=== PATIENT | male | born 1975 | race Caucasian/White ===

== ENCOUNTER → 2022-02-13 09:39 | Outpatient (BNVA) | payer OTHER, SELFPAY | PROVIDERS: Visit Provider Internal Medicine | DX: Z77.21 Contact with and (suspected) exposure to potentially hazardous body fluids (principal); Z23 Encounter for immunization | CPT/HCPCS: 36415; 84450; 84460; 85025; 86704; 86706; 86803; 87340; 87389; 90715; 99203 ==

== ENCOUNTER → 2022-02-15 14:16 | Outpatient (BNVA) | payer OTHER, SELFPAY | PROVIDERS: Visit Provider Internal Medicine | DX: Z77.21 Contact with and (suspected) exposure to potentially hazardous body fluids (principal) | CPT/HCPCS: 99213 ==

== ENCOUNTER → 2022-02-19 16:12 | Outpatient (BNVA) | payer OTHER, SELFPAY | PROVIDERS: Visit Provider Internal Medicine | DX: Z77.21 Contact with and (suspected) exposure to potentially hazardous body fluids (principal) | CPT/HCPCS: 99213 ==

== ENCOUNTER → 2022-02-27 15:17 | Outpatient (BNVA) | payer OTHER, SELFPAY | PROVIDERS: Visit Provider Internal Medicine | DX: Z77.21 Contact with and (suspected) exposure to potentially hazardous body fluids (principal) | CPT/HCPCS: 36415; 82150; 82565; 84450; 84460; 85025; 99213 ==

== ENCOUNTER → 2022-05-17 13:39 | Outpatient (BNVA) | payer OTHER, SELFPAY | DX: Z77.21 Contact with and (suspected) exposure to potentially hazardous body fluids (principal) | CPT/HCPCS: 36415; 82150; 82565; 84450; 84460; 85025; 86803; 87389; 99211 ==

== ENCOUNTER → 2022-08-13 15:34 | Outpatient (BNVA) | payer OTHER, SELFPAY | DX: Z77.21 Contact with and (suspected) exposure to potentially hazardous body fluids (principal) | CPT/HCPCS: 36415; 84450; 84460; 86803; 87389 ==

== ENCOUNTER 2023-04-24 20:30 | Emergency (ER) | payer BC, SELFPAY ==
[2023-04-24 20:49] VITALS: BP 126/76; PULSE 83; RESP 18; TEMP 37.1; O2SAT 96; BMI 32.2
--- NOTE | 2023-04-24 20:49 | ED.SKABFB ---
HPI - Skin/Abscess/Foreign Bdy General Chief complaint: Skin/Abscess/Foreign Body Stated complaint: ?cyst on chest Time Seen by Provider: 04/24/23 20:53 Source: patient, RN notes reviewed and old records reviewed Mode of arrival: ambulatory History of Present Illness HPI narrative: 47-year-old male with no significant past medical history presenting to the ED complaining of known cyst to anterior chest wall x years which he noted discomfort and drainage from x today. Denies poking area with anything, fever/chills MD complaint: abscess/boil Related Data Previous Rx's Medication Instructions Recorded cephalexin 500 mg capsule 500 mg PO QID 7 days #28 caps 04/24/23 Allergies Allergy/AdvReac Type Severity Reaction Status Date / Time No Known Allergies Allergy Verified 04/24/23 20:48 [No Known Allergies*] Review of Systems Review of Systems: Constitutional: No Fever, No Chills ENT/Mouth: No Ear Pain, No Nasal Congestion, No sore throat, No Rhinorrhea, No Swallowing Difficulty Cardiovascular: No Chest Pain, No SOB Respiratory: No Cough, Gastrointestinal: No Nausea, No Vomiting, No Diarrhea, No Constipation, No Abdominal pain Musculoskeletal: No joint pain, No Myalgias, No Joint Swelling Skin: +Skin Lesions, No rash Neuro: No Weakness Yes all other systems are reviewed and are negative Constitutional: Constitutional: Reports as per [facility] Past Medical History Attestation statement: The following information was validated with the patient. Source: old records reviewed Physical Exam Vital Signs: Vital Signs: Last Vital Signs Temp 98.7 F 04/24/23 20:49 Pulse 83 04/24/23 20:49 Resp 18 04/24/23 20:49 BP 126/76 04/24/23 20:49 Pulse Ox 96 04/24/23 20:49 O2 Del Method Room Air 04/24/23 20:49 BMI result Body Mass Index 32.2 Const: General: cooperative, healthy appearing and no acute distress Orientation/consciousness: patient oriented x3 Limitations: no limitations HEENT: Head: Yes normal to inspection and Yes atraumatic Ears: hearing grossly normal bilaterally General nose exam: Normal external nose present Face and sinus: Yes normal facial exam Eyes: General: appearance normal, both eyes and all related structures EOM: EOMs intact bilaterally Neck: Neck: Yes normal visual inspection and Yes no meningeal signs Resp: Effort & Inspection: normal respiratory effort and no respiratory distress Cardio: Rate: regular rate Skin: Other: + cyst noted to anterior chest wall/sternum with small amount of bloody drainage expressed. Mildly tender. Some cyst pocket expressed. No pus drainage or fluctuance/induration. no streaking Rashes: no rashes Wounds: no wounds Neuro: General: patient oriented x3, tone normal and no meningeal signs Cranial nerves: Yes CN's II-XII intact bilaterally Gait exam (Neuro): Normal gait present Extrem: General: Yes normal to inspection Medical Decision Making Medical Decision Making MDM Narrative: 47-year-old male with no significant past medical history presenting to the ED complaining of known cyst to anterior chest wall x years which he noted discomfort and drainage from x today. On exam vital signs stable, NAD, nontoxic appearing, afebrile, physical above. Concern for infected cyst vs open abscess. Low suspicion for cellulitis or deeper tissue infection Plan: PO abx, Derm f/u Dressing applied Please refer to course for remaining clinical decision making, interpretation of labs/imaging results, and discussions with consultants and/or family members. Differential Diagnosis Differential Diagnoses: The differential diagnosis associated with the presentation includes As above External Record Review External record reviewed: Inpatient record, Office record, Outpatient record, Prior outpatient labs, Prior outpatient radiology, Primary care record and Outside ED record Tests considered The following testing was considered but not selected: As above Prescription Management I considered prescription management with: Pain Medication and Antibiotic Discharge Plan Discharge Clinical Impression: Cyst of skin Patient Disposition: Home, Self-Care Instructions: Cyst (ED) Additional Instructions: apply warm compresses at home keflex is an antibiotic take as prescribed Take Tylenol and Motrin for pain If area worsens, becomes more red, has pus drainage or you have fever return to the ED Please follow-up with dermatology and your PCP Prescriptions: New cephalexin 500 mg capsule 500 mg PO QID 7 Days Qty: 28 0RF Referrals: [facility] [Outside]
--- OUTSIDE RECORDS SUMMARY | 2023-04-24 21:00 | XMS_ITS | Continuity of Care Document ---
Author Name Unknown Organization [facility] ter Address [address] [place] [address]- Care Team Providers Care Grape Crusher Name Role Phone Idania ALBERT, Cristian Coyne Primary Care Physician [phone] [facility] [id number] Date(s): 03/03/20 - 03/04/[address] [address]- [facility] Attending Physician: Zoila MOJICA, Lisseth Bryant Medications Aerochamber See Instructions, # 1 each, Maintenance, use with flovent, 12/04/13 9:41:41, Compound Start Date: 12/04/13 Status: Ordered Astelin 137 mcg/inh nasal spray 2 sprays, Nares, Both, 2 times a day, # 1 each, 11 Refills, Maintenance, 12/04/13 9:41:23, 2 spraysNares, Both 2 times a day Start Date: 12/04/13 Status: Ordered Flovent HFA 44 mcg/inh inhalation aerosol 2 puffs, Inhalation, 2 times a day, # 11 Gm, 11 Refills, Maintenance, 12/04/13 9:41:33, Aerosol, 2 puffs Inhalation 2 times a day Start Date: 12/04/13 Status: Ordered lorazepam 0.5 mg oral tablet 1 tablet = 0.5 mg, By Mouth, 3 times a day, PRN for anxiety, 0 Refills, Maintenance, 12/04/13 9:16:26, Tablet Start Date: 12/04/13 Status: Ordered ProAir HFA 90 mcg/inh inhalation aerosol with adapter 1 puffs, Inhalation, 4 times a day, PRN for wheezing, # 8.5 Gm, 0 Refills, Maintenance, 12/04/13 9:16:47, Aerosol Start Date: 12/04/13 Status: Ordered sertraline 100 mg oral tablet 1 tablet = 100 mg, By Mouth, Daily, 0 Refills, Maintenance, 12/04/13 9:16:10 Start Date: 12/04/13 Status: Ordered Social History Social History Type Response Smoking Status Never smoker; Tobacc o user in household: Yes entered on: 12/04/13 Sex
--- OUTSIDE RECORDS SUMMARY | 2023-04-24 21:00 | XMS_ITS | Continuity of Care Document ---
Author Name Unknown Organization [facility] Address [address] [place] [address]- Care Team Providers Care Lubrication Equipment Servicer Name Role Phone Idania ALBERT, Cristian Coyne Primary Care Physician [facility] [id number] Date(s): 06/24/19 - 07/04/19 [facility] [address] [place] [address]- [facility] Attending Physician: Kenyetta Mcdonnell Admitting Physician: AdmKenyetta patel Referring Physician: Admtr, Ar8 Medications Aerochamber See Instructions, # 1 each, [...]
--- OUTSIDE RECORDS SUMMARY | 2023-04-24 21:00 | XMS_ITS | Continuity of Care Document ---
Author Name Unknown Organization [facility] ter Address [address] [place] [address]- Care Team Providers Care Step Down Nurse Name Role Phone Idania ALBERT, Cristian Coyne Primary Care Physician Encounter [facility] Date(s): 07/20/20 - 10/19/[address] [address] Attending Physician: Zoila MOJICA, Lisseth Bryant Medications [...]
--- OUTSIDE RECORDS SUMMARY | 2023-04-24 21:00 | XMS_ITS | Continuity of Care Document ---
Author Name Unknown Organization [facility] Address [address] [place] [address]- Care Team Providers Care Broadcast Chief Engineer Name Role Phone Zoila MOJICA, Lisseth Santiago Primary Care Physician [place] [facility] Date(s): 10/18/22 - 11/17/22 [facility] [address] [place] [address]- [place] Allergies, Adverse Reactions, Alerts Substance Reaction Severity Status sertraline Nausea Active Immunizations Given and Recorded Vaccine Date Status Refusal Reason hepatitis B adult vaccine 08/13/22 Recorded hepatitis B adult vaccine 05/17/22 Recorded hepatitis B adult vaccine 02/15/22 Recorded [id number] 12y+ bivalent booster vax 04/24/22 Recorded tetanus/diphtheria/pertussis, acel(Tdap) 02/13/22 Recorded tetanus/diphtheria/pertussis, acel(Tdap) 10/22/14 Recorded SARS-CoV-2 (COVID-19) mRNA-1273 vaccine 04/26/21 R ecorded SARS-CoV-2 (COVID-19) Ad26 vaccine 09/02/20 Record ed influenza virus vaccine, inactivated 02/21/20 Mk rded influenza virus vaccine, inactivated 04/09/18 Mk rded influenza virus vaccine, inactivated 03/01/17 Mk rded influenza virus vaccine, inactivated 02/21/16 Mk rded influenza virus vaccine, inactivated 02/20/15 Mk rded influenza virus vaccine, inactivated 02/24/14 Mk rded Medications Albuterol (Eqv-ProAir HFA) 90 mcg/inh inhalation aerosol 2 puffs, Inhalation, Every 6 hours, PRN NEEDED FOR WHEEZING OR SHORTNESS OF BREATH, # 8.5 Gm, 0 Refills, Maintenance, 11/07/22 8:05:00 EDT, [facility][id number], 25, INHALE 2 PUFFS BY MOUTHEVERY 6 HOURS NEEDED FOR WHEEZING OR SHORTNESS O... Start Date: 11/07/22 Status: Ordered NuLYTELY with Flavor Packs oral powder for reconstitution 240 mL, By Mouth, Every 10 minutes, split prep method, take 1st half of prep evening before procedure, 2nd half 6 hrs prior to procedure., # 1 each, 0 Refills, Maintenance, 10/18/22 7:43:00 EDT, REC Powder, [facility] #[id number], test date . Start Date: 10/18/22 Status: Ordered omeprazole 20 mg oral enteric coated capsule 1 capsule = 20 mg, By Mouth, Daily, # 90 capsule, 0 Refills, Maintenance, 10/15/22 12:44:00 EDT, [facility], Partial fill upon patient request if the prescription is for a schedule II opioid drug. Start Date: 10/15/22 Status: Ordered Viagra 100 mg oral tablet 1 tablet = 100 mg, By Mouth, Daily, 0 Refills, Maintenance, 10/15/22 12:43:00 EDT, Partial fill upon patient request if the prescription is for a schedule II opioid drug. Start Date: 10/15/22 Status: Ordered Problem List Condition Confirmation Course Effective Dates Status Health Status Informant Anxiety Confirmed Active Asthma Confirmed Active Central serous chorioretinopathy Confirmed Active Depression Confirmed Active Erectile dysfunction Confirmed Active GERD (gastroesophageal reflux disease) Confirmed Active Low back pain Confirmed Active Hypogonadism male Confirmed Active Major depressive disorder, single episode, mild Confirmed Active Obese class I Confirmed Active EDA (obstructive sleep apnea) Confirmed Active Reactive airway disease Confirmed Active Sebaceous cyst of left axilla Confirmed Active Anterolisthesis Confirmed Active Vitamin D deficiency Confirmed Active Social History Social History Type Response Smoking Status Never (less than 100 in lifetime) entered on: 10/15/22 Sex Patient Care team information Care Team Personnel Name: Emy Johnson Position: [facility] Outreach Member Role: Lifetime Consulting Physician Name: Lisseth Cummings NP Position: [facility] PCO Associate Professional Member Role: PCP Address: Address: [address] [place] [address]- Care Team Related Persons Name: JEFFREYSANDRA Address: home [address] [place] [id number]
--- OUTSIDE RECORDS SUMMARY | 2023-04-24 21:00 | XMS_ITS | Continuity of Care Document ---
Author Name Unknown Organization [facility] ter Address [address] [place] [address]- Care Team Providers Care Promotions Associate Name Role Phone Idania ALBERT, Cristian Coyne Primary Care Physician [phone] Encounter [facility] [id number] Date(s): 10/06/19 - 10/07/[address] [address]- [facility] Attending Physician: Zoila MOJICA, Lisseth Bryant Medications [...]
--- OUTSIDE RECORDS SUMMARY | 2023-04-24 21:00 | XMS_ITS | Continuity of Care Document ---
Author Name Unknown Organization [facility] Address [address] [place] [address]- Care Team Providers Care Drug And Alcohol Treatment Specialist Name Role Phone Cristian Emerson MD Primary Care Physician [phone] [facility] [id number] Date(s): 06/24/19 - 07/01/19 [facility] [address] [place] [address]- [facility] Encounter Diagnosis Sore throat(Discharge Diagnosis) - 06/24/19 Attending Physician: Herb ALBERT, Freddie Coyne Referring Physician: Cristian Emerson MD Medications Aerochamber See Instructions, # 1 each, Maintenance, use with flovent, 12/04/13 9:41:41, Compound Start Date: 12/04/13 Status: Ordered amoxicillin 500 mg oral tablet 1 tablet = 500 mg, By Mouth, 3 times a day, for 10 days, # 30 tablet, 0 Refills, Acute 07/04/19 12:23:00 EST, 06/24/19 12:23:00 EST, Tablet, [facility] #[id number], 96.9, kg, 06/24/19 12:09:00 EST, Dry Weight Start Date: 06/24/19 Stop Date: 07/04/19 Status: Ordered Astelin 137 mcg/inh nasal spray [...] 12/04/13 9:16:10 Start Date: 12/04/13 Status: Ordered Problem List Diagnosis Diagnosis Type Effective Dates Health Status Clini stephan Service Informant Sore throat Discharge Diagnosis 06/24/19 Vital Signs Most recent to oldest [Reference Range]: 1 Weight 96.9 kg (06/24/19 12:09 PM) Oxygen Saturation [94-100 %] 100 % (06/24/19 12:09 PM) Pulse Rate [55-90 bpm] 86 bpm (06/24/19 12:09 PM) Blood Pressure [90-138/55-84 mm Hg] 137/ 90mm Hg (06/24/19 12:09 PM) Respiratory Rate [16-30 br/min] 22 br/mi n (06/24/19 12:09 PM) Temperature [96.8-100.4 DegF] 99.1 DegF (06/24/19 12:09 PM) Mode of Delivery (Oxygen) Room air (06/24/19 12:09 PM) Blood pressure sites Arm, left (06/24/19 12:09 PM) Temperature Route Oral (06/24/19 12:09 PM) Dry Weight 96.9 kg (06/24/19 12:09 PM) Weight Obtained Via Standing scale (06/24/19 12:09 PM) Dry Weight Obtained Via Standing scale (06/24/19 12:09 PM) Social History Social History Type Response Smoking Status Never smoker; Tobacc o user in household: Yes entered on: 12/04/13 Sex
--- OUTSIDE RECORDS SUMMARY | 2023-04-24 21:00 | XMS_ITS | Continuity of Care Document ---
Author Name Unknown Organization [facility] Address [address] [place] [address]- Care Team Providers Care Brick Washer Name Role Phone Zoila MOJICA, Lisseth Santiago Primary Care Physician Encounter [facility] Date(s): 01/07/23 - 02/06/23 [facility] [address] [place] [address]- [place] Allergies, Adverse Reactions, Alerts Substance Reaction Severity Status sertraline Nausea Active Immunizations Given and Recorded Vaccine Date Status Refusal Reason hepatitis B adult vaccine 08/13/22 Recorded hepatitis B adult vaccine 05/17/22 Recorded hepatitis B adult vaccine 02/15/22 Recorded [id number] 12y+ bivalent booster vax 04/24/22 Recorded tetanus/diphtheria/pertussis, [...] Gm, 0 Refills, Maintenance, 11/07/22 8:05:00 EDT, [facility] #[id number], 25, INHALE 2 PUFFS BY MOUTHEVERY 6 HOURS NEEDED FOR WHEEZING OR SHORTNESS O... Start Date: 11/07/22 Status: Ordered NuLYTELY Lemon [place] oral powder for reconstitution 240 mL, By Mouth, Every 15 minutes, split prep method 1st half 5 pm evening before , 2nd half 6 hours prior to procedure, # 1 each, 0 Refills, Maintenance, 01/07/23 9:06:00 EDT, REC Powder, [facility] #[id number], test date 01/10/23, 167, cm, 05... Start Date: 01/07/23 Status: Ordered omeprazole 20 mg oral enteric [...] Care Team Personnel Name: Emy Johnson Position: [facility] Outreach Member Role: Lifetime Consulting Physician Name: Lisseth Cummings NP Position: [facility] PCO Associate Professional Member Role: PCP Address: Address: [address] [place] [address]- [place] Care Team Related Persons Name: JEFFREY SANDRA Address: home [address] [place] [address] [place] [address]
--- OUTSIDE RECORDS SUMMARY | 2023-04-24 21:00 | XMS_ITS | Continuity of Care Document ---
Author Name Unknown Organization [facility] ter Address [address] [place] [address]- Care Team Providers Care Packerhead Machine Operator Name Role Phone Idania ALBERT, Cristian Coyne Primary Care Physician Encounter [facility] ACCT [facility] [id number] Date(s): 10/19/19 - 10/20/[address] [address]- [facility] Attending Physician: Zoila MOJICA, Lisseth [...]
--- OUTSIDE RECORDS SUMMARY | 2023-04-24 21:00 | XMS_ITS | Continuity of Care Document ---
Author Name Unknown Organization [facility] ter Address [address] [place] [address]- Care Team Providers Care Horizontal Boring Mill Set Up Operator Name Role Phone Idania ALBERT, Cristian Coyne Primary Care Physician En[place] [facility] Date(s): 10/21/20 - 10/22/[address] [address] Attending Physician: Zoila MOJICA, Lisseth Santiago Medications Aerochamber See Instructions, # 1 each, [...]
--- OUTSIDE RECORDS SUMMARY | 2023-04-24 21:00 | XMS_ITS | Continuity of Care Document ---
Author Name Unknown Organization [facility] Address [address] [place] [address]- Care Team Providers Care Hand Edge Bander Name Role Phone Zoila MOJICA, Lisseth Santiago Primary Care Physician En[facility] Date(s): 01/10/23 - 01/10/[address] [address]- Discharge Disposition: A-D/C Home Attending Physician: Fabio Raymond MD Admitting Physician: Fabio Raymond MD Referring Physician: Fabio Raymond MD Allergies, Adverse Reactions, Alerts Substance Reaction Severity Status sertraline Nausea Active Immunizations Given and Recorded Vaccine Date Status Refusal Reason hepatitis B adult vaccine 08/13/22 Recorded hepatitis B adult vaccine 05/17/22 Recorded hepatitis B adult vaccine 02/15/22 Recorded [id number] 12y+ bivalent booster vax 04/24/22 Recorded tetanus/diphtheria/pertussis, [...] Gm, 0 Refills, Maintenance, 11/07/22 8:05:00 EDT, [facility] #[id number], 25, INHALE 2 PUFFS BY MOUTHEVERY 6 HOURS NEEDED FOR WHEEZING OR SHORTNESS O... Start Date: 11/07/22 Status: Ordered NuLYTELY Lemon [place] oral powder for reconstitution 240 mL, By Mouth, Every 15 minutes, split prep method 1st half 5 pm evening before , 2nd half 6 hours prior to procedure, # 1 each, 0 Refills, Maintenance, 01/07/23 9:06:00 EDT, REC Powder, [facility] #[id number], test date 01/10/23, 167, cm, 05... Start [...] Confirmed Active Vitamin D deficiency Confirmed Active Vital Signs Most recent to oldest [Reference Range]: 1 2 3 Height 170 cm (01/10/23 12:40 PM) Weight 90.4 kg (01/10/23 12:40 PM) Oxygen Saturation [94-100 %] 100 % (01/10/23 2:00 PM) 99 % (01/10/23 1:45 PM) 98 % (01/10/23 1:40 PM) Pulse Rate [55-90 bpm] 83 bpm (01/10/23 12:40 PM) Body Mass Index [18.5-24.99 kg/m2] 31.28 kg/m2 *>HHI* (01/10/23 12:40 PM) Blood Pressure [90-138/55-84 mm Hg] 129/87mm Hg (01/10/23 2:00 PM) 98/66mm Hg (01/10/23 1:45 PM) 101/68mm Hg (01/10/23 1:40 PM) Respiratory Rate [16-30 br/min] 14 br/min *L* (01/10/23 2:20 PM) 15 br/min *L* (01/10/23 2:00 PM) 16 br/min (01/10/23 1:45 PM) Temperature [96.8-100.4 DegF] 98.5 DegF (01/10/23 12:40 PM) Mode of Delivery (Oxygen) Room air (01/10/23 2:00 PM) Room air (01/10/23 1:45 PM) Room air (01/10/23 1:40 PM) Blood pressure sites Arm, left (01/10/23 1:45 PM) Arm, left (01/10/23 1:40 PM) Arm, left (01/10/23 1:37 PM) Temperature Route Temporal (01/10/23 12:40 PM) Dry Weight 90.4 kg (01/10/23 12:40 PM) Weight Obtained Via Standing scale (01/10/23 12:40 PM) Dry Weight Obtained Via Standing scale (01/10/23 12:40 PM) Social History Social History Type Response Smoking Status Never (less than 100 in lifetime) entered on: 10/15/22 Sex Patient Care team information Care Team Personnel Name: Emy Johnson Position: [facility] Outreach Member Role: Lifetime Consulting Physician Name: Lisseth Cummings NP Position: [facility] PCO Associate Professional Member Role: PCP Address: Address: [address] [place] [address]- Care Team Related Persons Name: SANDRA MURPHY Address: home [address] [place] [address] [place] [id number]
== END 2023-04-24 21:08 | disposition home or self-care (01) ==
PROVIDERS: Emergency Provider Internal Medicine
DX: L72.9 Follicular cyst of the skin and subcutaneous tissue, unspecified (principal); R07.89 Other chest pain
CPT/HCPCS: 99282; 99283

== ENCOUNTER 2024-05-28 16:34 | Day surgery (SDC) | payer BC, SELFPAY ==
[2024-05-28] VITALS (8 sets, daily range): BP systolic 105–136; BP diastolic 79–88; PULSE 85–101; RESP 16–20; TEMP 36.6–37.3; O2SAT 96–100; BMI 32.3
--- NOTE | ~2024-05-28 | XR_ITS ---
CLINICAL HISTORY: dyspnea 1 view chest x-ray Comparison: None Findings: The lungs are clear. Normal size heart. No acute fracture. IMPRESSION: 1. No acute findings. This document has been electronically signed by: Dex Mae MD on 05/28/2024 18:23:00
--- NOTE | 2024-05-28 17:02 | ED_ITS ---
HPI - Nausea/Vomiting/Diarrhea General Chief complaint: General Medical Stated complaint: Throat pain, discomfort Time Seen by Provider: 05/28/24 17:14 Source: patient Mode of arrival: ambulatory Limitations: no limitations History of Present Illness ED Provider: HAMMAD GARRISON Narrative: 48 yo male with no PMH not on thinners ate pork at lunchtime no bones felt like something got stuck when he choked on it he got most of it up but then he states he feels like he cannot swallow and water and saliva keep coming up. This has never happened before. He has not tolerated anything since noon. He feels slightly short of breath at times. MD elicited complaint: other (FB ) Onset (ago): hour(s) (noon today) Description of vomiting: food contents Associated nausea: No Associated abdominal pain: No Location of pain: none Severity: moderate Exacerbating factors: eating (swallowing) Relieving factors: none Context: other Associated symptoms: nausea/vomiting and shortness of breath Related Data Previous Rx's ?Medication ?Instructions ?Recorded cephalexin 500 mg capsule 500 mg PO QID 7 days #28 caps 04/24/23 Allergies Allergy/AdvReac Type Severity Reaction Status Date / Time No Known Allergies Allergy Verified 05/28/24 17:05 [No Known Allergies*] Review of Systems 2 Review of Systems: Constitutional : No Fever, No Chills, No Fatigue ENT/Mouth : No sore throat, No Rhinorrhea Eyes: No Eye Pain, No Swelling, No Redness Cardiovascular : No Chest Pain, No SOB, No Dyspnea on Exertion Respiratory : No Cough, No Sputum Gastrointestinal : pos Nausea, No Vomiting, No Diarrhea, No abdominal Pain Genitourinary : No Dysuria, No Urinary Frequency, No Hematuria, Musculoskeletal : No joint pain, No Myalgias, No Joint Swelling Skin : No Skin Lesions, No rash Neuro : No Weakness, No Numbness, No Dizziness, no Headache All other systems reviewed and are negative Gastrointestinal: Gastrointestinal: Denies nausea PMFSH Past Medical History Attestation statement: The following information was validated with the patient. Source: old records reviewed Medical History No pertinent past medical history Social History Social History (Updated 05/28/24 @ 17:28 by Paula Brown DO) Patient Tobacco Use Status: Tobacco use Unknown Smoked in Last 30 Days: No Use of substances other than those prescribed or required for medical reasons: No Advance Directives: No Advance Directives Information Provided: No Do you have a plan to hurt others: No Plan Physical Exam 2 Vital Signs: Vital Signs: Last Vital Signs Temp 98.0 F 05/28/24 17:01 Pulse 88 05/28/24 18:11 Resp 18 05/28/24 18:11 BP 126/85 05/28/24 18:11 Pulse Ox 100 05/28/24 18:11 O2 Del Method Room Air 05/28/24 18:11 BMI result Body Mass Index 32.3 Appearance: Alert. Oriented X3. No acute distress. Eyes: Pupils equal, round and reactive to light. ENT: Pharynx normal. no stridor Neck: Normal inspection. Neck supple. CVS: Normal heart rate and rhythm. Pulses normal. Respiratory: No respiratory distress. Breath sounds normal. Abdomen: Soft and non-tender. Skin: Skin warm and dry. Normal skin color. Normal skin turgor. Extremities: No lower extremity edema. No calf ttp Neuro: Oriented X 3. No motor deficit. No sensory deficit. Course Course Course Narrative: This is a Rapid Medical Examination (RME) performed by Tavon Mc PA-C in triage. Full HPI, ROS, assessment and treatment plan per primary provider in the Main ED. 48 yo male who presents to the ER from Urgent Care for evaluation of a possible esophageal food bolus. reports eating pork at lunch, choking on it and having sesnsation something is still stuck in his throat. has tried to drink soda and water to try to get it to go down but everything comes back up. unable to tolerate his own saliva either. Plan: treat for food bolus, GI consult if unsuccessful Medications Administered Discontinued Medications Generic Name Dose Route Start Last Admin Trade Name Freq PRN Reason Stop Dose Admin Glucagon 1 mg 05/28/24 17:24 05/28/24 18:07 Glucagon Hcl 1 Mg Vial IVPUSH 05/28/24 17:25 1 mg ONCE ONE Administration Nitroglycerin 0.4 mg 05/28/24 17:24 05/28/24 18:08 Nitroglycerin 0.4 Mg Tab.Subl SUBLINGUAL 05/28/24 17:25 0.4 mg ONCE ONE Administration Medical Decision Making Medical Decision Making MDM Narrative: 48 yo male with no PMH not on thinners here with c/o FB impaction feeling since noon at this time will obtain labs, CXR and start on IV glucagon and try oral nitro - if no improvement will refer to GI Differential Diagnosis Differential Diagnoses: The differential diagnosis associated with the presentation includes abrasion, esophagitis, FB impaction Admission/Observation Consideration of admission/observation: Escalation of care including admission/observation considered needs EGD Consult Healthcare Provider Management of the patient was discussed with: Showroom Consultant message sent to Dr. Dey [phone] send for EGD Lab Data [facility] Lab Attestation statement: I reviewed the patient's lab results. 05/28/24 17:46 05/28/24 17:46 Labs: Lab Results 05/28/24 Range/Units 17:46 WBC 11.2 H (4.8-10.8) X10*3/uL RBC 5.46 (4.60-5.80) X10*6/uL Hgb 15.5 (14.0-18.0) g/dl Hct 44.0 (42.0-52.0) % MCV 80.6 (80.0-98.0) fL MCH 28.4 (27.0-33.0) pg MCHC 35.2 (31.0-36.0) g/dl RDW 12.9 (11.0-16.0) % Plt Count 248 (160-400) X10*3/uL MPV 9.9 (9.4-12.4) fL Immature Gran % (Auto) 0.4 (0.0-0.4) % Neut % (Auto) 76.4 H (45-73) % Lymph % (Auto) 14.9 L (20-40) % [place] % (Auto) 5.1 (2-11) % Eos % (Auto) 2.8 (0-4) % Baso % (Auto) 0.4 (0-2) % Lymph # (Auto) 1.7 (1.2-4.9) X10*3/uL [place] # (Auto) 0.6 (0.1-1.2) X10*3/uL Eos # (Auto) 0.3 (0.0-0.4) X10*3/uL Baso # (Auto) 0.0 (0.0-0.2) X10*3/uL Abs Immat Gran (auto) 0.04 H (0.00-0.03) X10*3/uL Absolute Neuts (auto) 8.6 H (2.0-8.3) x10*3/uL Absolute Nucleated RBC 0.000 (0.0-0.012) X10*3/uL Nucleated RBC % (auto) 0.0 (0.0-0.2) /100WBC PT 11.0 (10.9-12.4) SEC INR 0.9 (0.9-1.1) Sodium 144 (135-145) mmol/L Potassium 4.3 (3.3-5.1) mmol/L Chloride 108 (96-108) mmol/L Carbon Dioxide 28 (22-29) mmol/L Anion Gap 12 (12-20) BUN 8 L (9-16) mg/dL Creatinine 0.95 (0.5-1.4) mg/dL Estim Creat Clear Calc 103.6 Estimated GFR > 60 Random Glucose 102 (60-115) mg/dL Calcium 8.6 (8.4-10.2) mg/dL Magnesium 2.0 (1.6-2.6) mg/dL Total Bilirubin 0.4 (0.0-1.0) mg/dL Direct Bilirubin 0.2 (0.0-0.5) mg/dL AST 27 (5-37) U/L ALT 42 H (0-40) U/L Alkaline Phosphatase 79 (39-117) U/L Total Protein 7.3 (6.5-8.0) g/dL Albumin 4.3 (3.5-5.0) g/dL Independent Interpretation I performed an independent interpretation of an: Plain X-Ray (no pneumonia) Radiology Impression Discussion of test interpretation with radiology: I have reviewed the radiologist's reading. Discharge Plan Discharge Clinical Impression: Food impaction of esophagus Qualifiers: Encounter type: initial encounter Qualified Code(s): T18.128A - Food in esophagus causing other injury, initial encounter Patient Disposition: Admitted as Observation Print Language: Croatian
[2024-05-28 17:51] LABS: MANUAL DIFF FLAG NO
[2024-05-28 17:55] LABS: Basophils Percent Auto 0.4 % (0-2); Eosinophils Absolute Auto 0.3 X10*3/uL (0.0-0.4); Eosinophils Percent Auto 2.8 % (0-4); Hemoglobin 15.5 g/dl (14.0-18.0); Imm Gran Abs Auto 0.04 X10*3/uL (0.00-0.03); Imm Gran Pct Auto 0.4 % (0.0-0.4); Lymphocytes Absolute Auto 1.7 X10*3/uL (1.2-4.9); Lymphocytes Percent Auto 14.9 % (20-40); Mean Corpuscular HGB Conc 35.2 g/dl (31.0-36.0); Mean Corpuscular Hemoglobin 28.4 pg (27.0-33.0); Mean Corpuscular Volume 80.6 fL (80.0-98.0); Mean Platelet Volume 9.9 fL (9.4-12.4); Monocytes Absolute Auto 0.6 X10*3/uL (0.1-1.2); Monocytes Percent Auto 5.1 % (2-11); Neutrophils Absolute Auto 8.6 x10*3/uL (2.0-8.3); Neutrophils Percent Auto 76.4 % (45-73); Platelet Count 248 X10*3/uL (160-400); Red Blood Count 5.46 X10*6/uL (4.60-5.80); Red Cell Distribution Width 12.9 % (11.0-16.0); White Blood Count 11.2 X10*3/uL (4.8-10.8)
[2024-05-28 17:56] LABS: INTERNATIONAL NORM RATIO 0.9 (0.9-1.1)
[2024-05-28] MEDS: glucagon HCL 1 MG VIAL IVPUSH (18:07)
[2024-05-28] MEDS: Nitroglycerin 0.4 MG TAB.SUBL SUBLINGUAL (18:08)
[2024-05-28 18:10] LABS: Alanine Aminotransferase 42 U/L (0-40); Albumin Level 4.3 g/dL (3.5-5.0); Alkaline Phosphatase 79 U/L (39-117); Anion Gap 12 (12-20); Aspartate Amino Transferase 27 U/L (5-37); Bilirubin Direct 0.2 mg/dL (0.0-0.5); Bilirubin Total 0.4 mg/dL (0.0-1.0); Blood Urea Nitrogen 8 mg/dL (9-16); Calcium 8.6 mg/dL (8.4-10.2); Carbon Dioxide 28 mmol/L (22-29); Chloride 108 mmol/L (96-108); Creatinine Clr Calc Pharmacy 103.6; Estimated Glomerular Filt Rate > 60; Glucose Random 102 mg/dL (60-115); Potassium 4.3 mmol/L (3.3-5.1); Sodium 144 mmol/L (135-145); Total Protein 7.3 g/dL (6.5-8.0)
--- NOTE | 2024-05-28 18:32 | PC.NURSE ---
Pt presents to ED from home, reports eating pork around lunch time and felt like some of the food got stuck in his throat. Denies pain, SOB or difficultly swallowing. Reports the feeling of food stuck. Alert and oriented, no signs of resp distress, skin warm and dry.
[2024-05-28] MEDS: 0.9 % Sodium Chloride 1,000 ML 125 ML IVCONT (18:49)
--- NOTE | 2024-05-28 19:37 | PC.NURSE ---
Nurse to nurser report given to Chester LOAN APPROVER. Patient taken to PACU for surg procedure.
--- NOTE | 2024-05-28 19:47 | P.CNGI_ITS ---
History of Present Illness Data of Consult Service Date: 05/28/24 Primary Care Provider: Unknown Physician HPI This is a 48-year-old gentleman with no significant past medical history, who presented to the emergency room this afternoon for food obstruction. History was obtained from the patient at bedside, who reports that around noon time, he was eating pork with rice and vegetables, went off a sudden he felt some food gets stuck in his upper chest. He tried to regurgitate some of it out, but since then has not been able to tolerate anything p.o., including his secretions. No fevers, chills, but does report mild chest pain and shortness of breath. Reports a few episodes of transient feeling of food obstruction over the last few years, but has never needed medical attention. No family history of esophageal or gastric disorders. Patient does not have any environmental allergies. Has never required an upper endoscopy before. Does not take any blood thinners. Occasionally takes NSAIDs. Does not smoke, drinks occasionally. On arrival to the emergency room, he was noted to be vitally stable. Labs with mild leukocytosis. Normal platelets and coags. Chest x-ray normal. ER providers have trialed glucagon and nitro without success. Review of Systems 2 Review of Systems: Yes all other systems are reviewed and are negative PMFSH Past Medical History Medical History No pertinent past medical history Social History Social History (Updated 05/28/24 @ 17:28 by Paula Brown DO) Patient Tobacco Use Status: Tobacco use Unknown Smoked in Last 30 Days: No Use of substances other than those prescribed or required for medical reasons: No Advance Directives: No Advance Directives Information Provided: No Do you have a plan to hurt others: No Plan Meds Allergies Allergy/AdvReac Type Severity Reaction Status Date / Time No Known Allergies Allergy Verified 05/28/24 17:05 [No Known Allergies*] Active Medications: Current Medications Sodium Chloride (Ns) 1,000 mls @ 125 mls/hr IVCONT .Q8H JULES Last Admin: 05/28/24 18:49 Dose: 125 mls/hr Physical Exam 2 Vital Signs: Vital Signs: Last Vital Signs Temp 99.2 F 05/28/24 19:28 Pulse 85 05/28/24 19:28 Resp 18 05/28/24 19:28 BP 129/79 05/28/24 19:28 Pulse Ox 99 05/28/24 19:28 O2 Del Method Room Air 05/28/24 19:28 BMI result Body Mass Index 32.3 No apparent distress Nonicteric hoarse voice spitting up Abdomen soft, nondistended Alert and oriented x3 Results Labs 05/28/24 17:46 05/28/24 17:46 Labs: Short CBC 05/28/24 Range/Units 17:46 WBC 11.2 H (4.8-10.8) X10*3/uL Hgb 15.5 (14.0-18.0) g/dl Hct 44.0 (42.0-52.0) % Plt Count 248 (160-400) X10*3/uL BMP 05/28/24 17:46 Sodium 144 Potassium 4.3 Chloride 108 Carbon Dioxide 28 BUN 8 L Creatinine 0.95 Calcium 8.6 Liver Function 05/28/24 Range/Units 17:46 Total Bilirubin 0.4 (0.0-1.0) mg/dL Direct Bilirubin 0.2 (0.0-0.5) mg/dL AST 27 (5-37) U/L ALT 42 H (0-40) U/L Alkaline Phosphatase 79 (39-117) U/L Albumin 4.3 (3.5-5.0) g/dL Assessment and Plan (1) Food impaction of esophagus: Qualifiers: Encounter type: initial encounter Qualified Code(s): T18.128A - Food in esophagus causing other injury, initial encounter; [id number].F3XA - Food entering into or through a natural orifice, initial encounter Status: Acute Plan Clinical presentation consistent with food bolus obstruction of the esophagus. Will arrange for urgent upper endoscopy for evaluation and disimpaction. Plan: -strict NPO -maintain IV access -urgent EGD to be done this evening -further recommendations to follow in the procedure note Brief recommendations were relayed to the ER provider through tiger text. Thank you for allowing me to participate in his care. Please do not hesitate to reach out for any questions or concerns. Procedures Date of Service Date of Service: 05/28/24
--- NOTE | 2024-05-28 19:50 | HO.ANESPROP2 ---
[facility] Active Problems Active Problems: All Active Problems Food impaction of esophagus (Acute) Past Medical History Medical History No pertinent past medical history Family History Family history of problems with anesthesia: No Surgical History History of Problems with Anesthesia: No Social History Social History (Updated 05/28/24 @ 17:28 by Paula Brown DO) Patient Tobacco Use Status: Tobacco use Unknown Smoked in Last 30 Days: No Use of substances other than those prescribed or required for medical reasons: No Advance Directives: No Advance Directives Information Provided: No Do you have a plan to hurt others: No Plan Meds Allergies Allergy/AdvReac Type Severity Reaction Status Date / Time No Known Allergies Allergy Verified 05/28/24 17:05 [No Known Allergies*] Active Medications: Current Medications Sodium Chloride (Ns) 1,000 mls @ 125 mls/hr IVCONT .Q8H JULES Last Admin: 05/28/24 18:49 Dose: 125 mls/hr Exam Height,Weight and Vital Signs: Height 5 ft 7 in Weight 93.5 kg Last Vital Signs Temp 99.2 F 05/28/24 19:28 Pulse 85 05/28/24 19:28 Resp 18 05/28/24 19:28 BP 129/79 05/28/24 19:28 Pulse Ox 99 05/28/24 19:28 O2 Del Method Room Air 05/28/24 19:28 Pertinent Lab Results Pertinent Lab Results: Laboratory Tests 05/28/24 17:46 WBC 11.2 H RBC 5.46 Hgb 15.5 Hct 44.0 MCV 80.6 MCH 28.4 MCHC 35.2 RDW 12.9 Plt Count 248 MPV 9.9 Immature Gran % (Auto) 0.4 Neut % (Auto) 76.4 H Lymph % (Auto) 14.9 L [place] % (Auto) 5.1 Eos % (Auto) 2.8 Baso % (Auto) 0.4 Lymph # (Auto) 1.7 [place] # (Auto) 0.6 Eos # (Auto) 0.3 Baso # (Auto) 0.0 Abs Immat Gran (auto) 0.04 H Absolute Neuts (auto) 8.6 H Absolute Nucleated RBC 0.000 Nucleated RBC % (auto) 0.0 PT 11.0 INR 0.9 Sodium 144 Potassium 4.3 Chloride 108 Carbon Dioxide 28 Anion Gap 12 BUN 8 L Creatinine 0.95 Estim Creat Clear Calc 103.6 Estimated GFR > 60 Random Glucose 102 Calcium 8.6 Magnesium 2.0 Total Bilirubin 0.4 Direct Bilirubin 0.2 AST 27 ALT 42 H Alkaline Phosphatase 79 Total Protein 7.3 Albumin 4.3 Airway Mallampati Class: III TM Dist: >3cm Neck ROM: Full Assessment and Plan Assessment Anesthesia Assessment: Anesthesia Plan Discussed and Chart Reviewed Final Anesthetic Review Family History of Problems with Anesthesia: No History of Problems with Anesthesia: No NPO: Yes ASA Class: III and Emergency Final Preanesthetic Review: No Changes in Pt Med Stat, Meds/Allgs Chart Reviewed, Consent Obtained/Reviewed and Anes Risks/Benef Reviewed Patient Risk: Intermediate Procedure Risk: Intermediate Anesthetic Plan Anesthetic Plan: GA Disposition: Standard PACU
--- NOTE | 2024-05-28 20:16 | P.OP_ITS ---
Operative Note Operative Note Date of Service: 05/28/24 Narrative: Procedure: Esophagogastroduodenoscopy Endoscopist: Danuta Dey MD Indication: Food impaction Anesthesia Provider: Dr Tommy Silva Anesthesia Type: GEA EGD Procedure:?? The procedure, indications, preparation and potential complications were reviewed with the patient, who indicated understanding and gave written informed consent to proceed. A physical exam was performed. The patient was electively intubated for airway protection the anesthesiologist. The endoscope was introduced through the mouth, and advanced to the second part of duodenum. The mucosa was carefully examined on slow withdrawal of the endoscope. The patient tolerated the procedure well. There were no immediate complications.? ? EGD Findings:? * Esophagus:? Impacted meat bolus was noted at 32 cm. This was pulled out with Rescue Net in one piece. On relook, there was diffuse edema, ulceration with spontaneous oozing from 32 cm to Z line at 36 cm. There was a medium sized hiatal hernia with the diaphragmatic pinch at 40 cm. Lower esophagus biopsies were deferred due to severe ulceration. Middle esophagus forceps biopsies were obtained to rule out eosinophilic esophagitis. * Stomach:? Normal mucosa was noted in the stomach. Retroflexion was performed in the cardia that showed Hill grade III hiatal hernia. * Duodenum:? Normal mucosa was noted in the whole of the examined duodenum. ? EGD Impressions:? * Food obstruction at 32 cm (disimpacted) * Grade D esophagitis * Hiatal hernia * Normal stomach * Normal duodenum Recommendations:?? * Follow biopsy results. Our office will call or send a letter with results within 7-10 days. * Start omeprazole 20 mg BID x 8 weeks and then once daily * Repeat upper endoscopy to be booked as outpatient to assess for healing +/- dilation as needed * Outpatient barium swallow Above has been reviewed with the patient.
== END 2024-05-28 20:57 | disposition home or self-care (01) ==
LOC: HO.ED 18:22 → HO.SSS 19:06
PROVIDERS: Internal Medicine; Emergency Provider Emergency Medicine; Visit Provider Emergency Medicine
PROC: 0DJ08ZZ Inspection of Upper Intestinal Tract, Via Natural or Artificial Opening Endoscopic (ICD-10-PCS; CPT 43235; principal; 2024-05-28 19:30)
DX: T18.128A Food in esophagus causing other injury, initial encounter (principal); W44.F3XA Food entering into or through a natural orifice, initial encounter; K20.90 Esophagitis, unspecified without bleeding; K44.9 Diaphragmatic hernia without obstruction or gangrene; R06.02 Shortness of breath; Y93.89 Activity, other specified; Y92.039 Unspecified place in apartment as the place of occurrence of the external cause; Y99.9 Unspecified external cause status
CPT/HCPCS: 43247; 43239; 36415; 71045; 80048; 80076; 83735; 85025; 85610; 88305; 96374; 99285; J1100; J1610; J2003; J2250; J2405; J2704

== ENCOUNTER → 2024-05-28 17:25 | Outpatient (BNV) | payer BC, SELFPAY | PROVIDERS: Emergency Provider Emergency Medicine | DX: R06.00 Dyspnea, unspecified (principal) | CPT/HCPCS: 71045 ==

== ENCOUNTER → 2024-05-28 18:34 | Outpatient (BNV) | payer BC, SELFPAY | PROVIDERS: Emergency Provider Emergency Medicine; Visit Provider Internal Medicine | DX: T18.128A Food in esophagus causing other injury, initial encounter (principal); W44.F3XA Food entering into or through a natural orifice, initial encounter; K20.90 Esophagitis, unspecified without bleeding | CPT/HCPCS: 43239; 43247; 99222 ==